=== PATIENT | male | born 1955 | race Caucasian/White ===

== ENCOUNTER 2021-08-03 08:02 | Emergency (ER) | payer OTHER, SELFPAY ==
--- NOTE | ~2021-08-03 | XR_ITS ---
EXAMINATION: XR KNEE, RIGHT CLINICAL INFORMATION: Right knee pain. Unable to bear weight. COMPARISON: None TECHNIQUE: Four views of the right knee. FINDINGS: There is a bipartite patella with corticated oval patellar moiety at superior lateral aspect measuring approximately 1.6 x 2.8 cm. There is moderate suprapatellar effusion. Hoffa's fat pad appears normal. There is no visible acute fracture or dislocation or destructive process. There is spurring at the quadriceps insertion patella. No knee joint compartment narrowing, erosive change, or chondrocalcinosis. XR/XR knee RT 4V IMPRESSION: 1. Moderate suprapatellar effusion. Bipartite patella. No visible acute fracture or dislocation. 2. Spurring at quadriceps insertion patella. No knee joint narrowing or erosive change.
[2021-08-03 08:20] VITALS: BP 170/93; PULSE 79; RESP 18; TEMP 36.1; O2SAT 98; BMI 26.6
--- NOTE | 2021-08-03 09:00 | ED.LOWEXIN ---
HPI - Extremity Injury (Lower) General Chief Complaint: Extremity Injury, Lower Stated Complaint: r knee pain Time Seen by Provider: 08/03/21 09:00 Source: patient Mode of arrival: ambulatory Limitations: no limitations History of Present Illness HPI Narrative: 66-year-old male with no significant medical history presents to the emergency department with knee pain x3 days progressively worsening. He states that he has pain 3 days ago started as a crampy, tightness sensation to the right knee, he states he is an avid bowler, he was bowling Friday ( 2 days ago) he said his knee did not feel right, and felt weak, crampy and tight. On (1 day ago) he bowled again, he states that when he was planting his feet on the ground his right knee gave out, he heard a pop, and he fell on the floor hitting his knee. He states he has been having trouble with ambulation, and it is very painful, he states 10/10 pain with ambulation, better at rest 0/10. He has been using a knee brace, with little to no relief, and he has also been using a cane and walker, which she states have been helping him. He is not on blood thinners. He denies chest pain, shortness of breath, fevers, chills, weakness, nausea, vomiting. When he fell he did not hit his head. complaint: knee injury (right knee ) Onset (ago): week(s) Type of Injury: blunt Place: other (Bowling) Severity: severe Severity scale (1-10): >10 Relieving factors: nothing Exacerbating factors: nothing Context: direct blow Associated symptoms: snap/pop sensation Other symptoms: none Treatments prior to arrival: other (brace, walker, cane ) Related Data Previous Rx's Medication Instructions Recorded naproxen 500 mg tablet 500 mg PO BID #14 tab 08/03/21 Allergies Allergy/AdvReac Type Severity Reaction Status Date / Time Penicillins Allergy Hives Verified 08/03/21 08:25 Review of Systems Review of Systems: Yes all other systems are reviewed and are negative Constitutional: Constitutional: Reports no additional constitutional complaints, Denies body ache(s), Denies chills, Denies fever(s), Denies headache(s) and Denies weakness Eyes: Eyes: Reports no additional eye complaints and Denies change in vision ENT: Reports system reviewed and no additional complaints, except as documented, Denies dizziness, Denies headache(s), Denies nasal congestion, Denies nasal discharge and Denies neck pain Cardiovascular: Cardiovascular: Reports no additional cardiovascular complaints, Denies chest pain, Denies leg edema and Denies dyspnea Respiratory: Respiratory: Reports no additional respiratory complaints, Denies cough and Denies dyspnea Gastrointestinal: Gastrointestinal: Reports no additional gastrointestinal complaints, Denies abdominal pain, Denies diarrhea, Denies nausea and Denies vomiting Genitourinary: Genitourinary: Denies urinary incontinence Musculoskeletal: Musculoskeletal: Reports no additional musculoskeletal complaints, Denies back pain, Reports arthralgias (right knee), Reports joint swelling (right knee), Denies neck pain, Denies numbness and Denies tingling Integumentary/Breasts: Skin/Breast: Reports system reviewed and no additional complaints, except as docu and Denies rash Neurologic: Reports system reviewed and no additional complaints, except as documented, Denies Abnormal speech present, Denies dizziness, Denies headache(s), Denies numbness, Denies tingling and Denies weakness PMFSH Past Medical History Attestation statement: The following information was validated with the patient. Source: old records reviewed and nursing notes reviewed Medical History No known health problems Social History Social History Advance Directives: No Physical Exam Vital Signs: Vital Signs: Last Vital Signs Temp 97.0 F 08/03/21 08:20 Pulse 79 08/03/21 08:20 Resp 18 08/03/21 08:20 BP 170/93 H 08/03/21 08:20 Pulse Ox 98 08/03/21 08:20 Body Mass Index 26.6 Const: General: cooperative, healthy appearing, comfortable and no acute distress Orientation/consciousness: patient oriented x3 Limitations: no limitations HENMT: Head: Yes normal to inspection Ears: hearing grossly normal bilaterally General nose exam: Normal external nose present Face and sinus: Yes normal facial exam Mouth: Normal oral and palatal mucosa present Throat: Yes posterior oropharynx normal Eyes: General: appearance normal, both eyes and all related structures Pupils: Equal, round and reactive pupils present Neck: Neck: Yes normal visual inspection Chest: Chest palpation & inspection: normal inspection of the chest Resp: Effort & Inspection: normal respiratory effort Auscultation: clear to auscultation bilaterally Cardio: Rate: regular rate Rhythm: regular rhythm Peripheral pulses: Peripheral pulses 2+ throughout GI: Inspection: Yes normal to inspection Palpation (GI): Soft to palpation and nontender Auscultation: normal bowel sounds Back/Spine/Pelvis: Thoracic/Lumbar Spine: thoracic and lumbar spine normal to inspection Skin: General skin exam: no rashes or lesions noted Neuro: General: patient oriented x3, no focal motor deficits and normal sensation to monofilament Cranial nerves: Yes Equal, round and reactive pupils present Cognition (Neuro): normal cognition Speech: No Abnormal speech present Gait exam (Neuro): Normal gait present Motor exam (neuro): 5/5 motor strength present throughout Extrem: General: No normal to inspection (mild swelling overlying right knee ), Yes full ROM, Yes capillary refill normal, Yes no pedal edema, Yes no calf tenderness (neagtive homansign ), No calf tenderness and Yes Limp noted Course Reevaluation(s) Reevaluation #1: X-ray shows a moderate suprapatellar effusion, and a bipartite patella. No fractures, or dislocations. An Efrain wrap will be applied. Patient will be discharged home. He can continue to use his cane for ambulation. He has been advised to follow-up with Orthopedics with new, worsening symptoms, or if pain persists past week. He can take naproxen for pain, and inflammation. He is safe for discharge home with PCP, and orthopedic follow-up. Time: 09:39 MDM - Extremity Injury (Lower) MDM Narrative Medical decision making narrative: 66-year-old male, no known medical history presents to the emergency department with right knee pain progressively worsening over the past three days. Pain began as a crampy, tight sensation. On Friday when he was bowling he felt like his knee felt weak, tight and crampy. On when he was planting his fee his knee gave out, knee his knee on the ground, heard a pop. He reports severe pain. Not on blood thinners Upon physical examination patient has full range of motion to right knee. There is mild edema overlying the right knee. Negative anterior drawer, posterior drawer, Apley, valgus and varus. Capillary refill less than 2 seconds, sensation intact, 2+ pulses equal in bilateral to bilateral lower extremities. 2+ popliteal pulse. When patient ambulates there is an evident limp. At this time plan is to obtain x-ray of the right knee. Medical Records Attestation: I reviewed the patient's medical records. Lab Data Attestation: I reviewed the patient's lab results. Discharge Plan Discharge Clinical Impression: Effusion of knee joint right Osteoarthritis Qualifiers: Osteoarthritis location: knee Osteoarthritis type: post-traumatic Laterality: right Qualified Code(s): M17.31 - Unilateral post-traumatic osteoarthritis, right knee Patient Disposition: Home, Self-Care Instructions: Osteoarthritis (ED), Swollen Knee Joint (ED), R.I.C.E. Treatment (ED), Swollen Joint (ED) Additional Instructions: Apply Efrain bandage as instructed. You can continue to use your cane for ambulation of this is helping. Rest, ice, elevate, compress, this will help with swelling. You can take ibuprofen for pain as needed. Follow-up with your primary care provider. Follow-up with orthopedics if symptoms worsen, or if pain does not improve within a week. Prescriptions: New naproxen 500 mg tablet 500 mg PO BID Qty: 14 RF: 0 Referrals: Santana Pierre MD [Physician] - 1 week Physician,Dionisio J [Primary Care Provider] - 2 days Stand Alone Forms: Work/School Release Interventions: ED Discharge Assessment Last Done: 08/03/21 10:07 Discharge Date/Time: 08/03/21 10:08
== END 2021-08-03 10:08 | disposition home or self-care (01) ==
PROVIDERS: Emergency Provider Emergency Medicine
DX: M17.31 Unilateral post-traumatic osteoarthritis, right knee (principal); S89.91XS Unspecified injury of right lower leg, sequela; X58.XXXS Exposure to other specified factors, sequela; M25.461 Effusion, right knee
CPT/HCPCS: 73564; 99283